=== PATIENT | male | born 1965 | race Caucasian/White ===

== ENCOUNTER 2021-05-07 21:07 | Emergency (ER) | payer OTHER ==
[~2021-05-07] VITALS: Ht 177.8 cm; Wt 83.9 kg
[2021-05-07 23:30] VITALS: BP 154/78
[2021-05-07] MEDS ORDERED: IBUPROFEN 800 MG TAB PO ONE (23:40)
[2021-05-07] MEDS ORDERED: IBUP-2213 PO (23:49)
[2021-05-08 00:10] VITALS: BP 154/78
--- NOTE | 2021-05-08 00:10 | NUR ---
Patient discharged with v/s stable. Written and verbal after care instructions given and explained. Patient verbalized understanding. Ambulatory with steady gait. All questions addressed prior to discharge. Pt refused to sign discharge papers, Advised to follow up with PMD.
== END 2021-05-08 00:10 | disposition home or self-care (01) ==
LOC: EDBD 21:07 → MED 21:07
DX: G89.29 Other chronic pain (principal); M54.2 Cervicalgia; M79.601 Pain in right arm
CPT/HCPCS: 99282

== ENCOUNTER 2021-05-09 09:24 | Emergency (ER) | payer OTHER ==
[~2021-05-09] VITALS: Ht 170.2 cm; Wt 72.6 kg
[~2021-05-09 09:24] MED LIST: IBUP-2213 PO
[2021-05-09 09:45] VITALS: BP 129/87
[2021-05-09 13:07] LABS: BASOPHILS # (AUTO) 0.1 K/uL (0.00-0.22); BASOPHILS % (AUTO) 1.8 % (0.0-2.0); HEMATOCRIT 38.7 % (36-52); HEMOGLOBIN 13.3 g/dL (12.0-18.0); LYMPHOCYTES # (AUTO) 1.3 K/uL (2.0-11.5); LYMPHOCYTES % (AUTO) 24.8 % (20.5-51.1); MEAN CORPUSCULAR HEMOGLOBIN 31 pg (27-31); MEAN CORPUSCULAR HGB CONC 34 g/dL (33-37); MEAN CORPUSCULAR VOLUME 88.8 fL (80-94); MONOCYTES # (AUTO) 0.6 K/uL (0.8-1.0); MONOCYTES % (AUTO) 10.9 % (1.7-9.3); NEUTROPHILS # (AUTO) 3.4 K/uL (1.8-7.7); NEUTROPHILS % (AUTO) 62.5 % (42.2-75.2); PLATELET COUNT (AUTO) 256 K/uL (140-450); RED BLOOD CELL COUNT(AUTO) 4.36 MIL/uL (4.20-6.10); RED CELL DISTRIBUTION WIDTH 13.2 % (11.6-13.7); WHITE BLOOD COUNT (AUTO) 5.4 K/uL (4.8-10.8)
[2021-05-09 13:31] LABS: ALBUMIN 3.6 g/dL (3.4-5.0); ANION GAP 15.8 (8-16); CARBON DIOXIDE 24.4 mmol/L (21-32); CREATININE 1.3 mg/dL (0.6-1.3); POTASSIUM 4.2 mmol/L (3.5-5.1); TOTAL BILIRUBIN 0.5 mg/dL (0.0-1.0)
[2021-05-09] MEDS ORDERED: KETOROLAC 30 MG/ML VIAL IM ONE (14:00)
--- NOTE | 2021-05-09 14:15 | NUR ---
56 y/o male, c/o chronic low back pain, bilateral leg pain, cp, states he is hungry and has not eaten in 2 days. pt was previously seen here yesterday for same s/s and was told he has chronic pain. glucose: 214 pmh: dm2, htn, blind nka
[2021-05-09 14:17] VITALS: BP 129/87
--- NOTE | 2021-05-09 14:17 | NUR ---
Patient discharged with v/s stable. Written and verbal after care instructions given and explained. Patient verbalized understanding. Ambulatory with assist by friend. All questions addressed prior to discharge. Advised to follow up with PMD.
== END 2021-05-09 14:17 | disposition home or self-care (01) ==
LOC: MED 09:24
DX: R07.9 Chest pain, unspecified (principal); G89.29 Other chronic pain; R11.2 Nausea with vomiting, unspecified; R51.9 Headache, unspecified; E11.9 Type 2 diabetes mellitus without complications; Z79.899 Other long term (current) drug therapy
CPT/HCPCS: 36415; 71045; 80053; 84484; 85025; 93005; 96372; 99285; J1885